=== PATIENT | female | born 1995 ===

== ENCOUNTER → 2021-08-28 | Emergency (ER) | payer SELFPAY ==
[~2021-08-28] VITALS: Ht 144.8 cm; Wt 81.6 kg
== END | disposition home or self-care (01) ==
LOC: ER 17:25
DX: J06.9 Acute upper respiratory infection, unspecified (principal); I10 Essential (primary) hypertension; Z86.2 Personal history of diseases of the blood and blood-forming organs and certain disorders involving the immune mechanism
CPT/HCPCS: 99282